=== PATIENT | male | born 1990 | race American Indian/Alaskan Native ===

== ENCOUNTER 2019-05-07 02:53 | Emergency (ER) | payer SELFPAY ==
[2019-05-07] MEDS ORDERED: NACL 0.9% 1000 ML 1,000 ML IV ONE (03:29)
[2019-05-07] MEDS ORDERED: NACL 0.9% 500 ML IR ONE (03:37)
[2019-05-07] MEDS ORDERED: XYLOCAINE 2%/EPI 1:100,000 INFILTRATI ONE ×2 (03:37→04:07)
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
[2019-05-07] MEDS ORDERED: NACL 0.9% IR ONE (04:07)
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
[2019-05-07 04:19] LABS: BUN/Creatinine Ratio 13; Blood Urea Nitrogen 10 mg/dL (9-20); Hemolysis Index 8
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
[2019-05-07 04:36] LABS: Basophils % (Auto) 0.1 % (0.0-1.8); Eosinophils % (Auto) 0.1 % (0.0-4.3); Hematocrit 36.7 % (35.5-45.6); Hemoglobin 11.9 gm/dl (11.8-15.2); Lymphocytes # (Auto) 0.8 K/mm3 (1.2-5.4); Lymphocytes % (Auto) 9.6 % (13.4-35.0); Mean Corpuscular HGB Conc 33 % (32-34); Mean Corpuscular Volume 84 fl (84-94); Monocytes # (Auto) 0.4 K/mm3 (0.0-0.8); Platelet Count 284 K/mm3 (140-440); Red Blood Count 4.38 M/mm3 (3.65-5.03); Red Cell Distribution Width 15.3 % (13.2-15.2)
[2019-05-07] MEDS ORDERED: BOOSTRIX IM ONE (05:09)
[2019-05-07] MEDS ORDERED: TRIPLE ANTIBIOTIC TP ONE (05:19)
[2019-05-07 05:35] VITALS: BP 120/76
== END 2019-05-07 05:37 | disposition home or self-care (01) ==
LOC: ED 02:53
DX: S06.0X0A Concussion without loss of consciousness, initial encounter (principal); S01.81XA Laceration without foreign body of other part of head, initial encounter; Z79.899 Other long term (current) drug therapy; X93.XXXA Assault by handgun discharge, initial encounter; Y93.89 Activity, other specified; Y92.488 Other paved roadways as the place of occurrence of the external cause; Y99.8 Other external cause status
CPT/HCPCS: 12014; 36415; 70450; 70486; 80048; 85025; 90471; 90715; 99284; J7030; 80320; 96360; A6250; G0480

== ENCOUNTER 2019-09-10 18:35 | Emergency (ER) | payer SELFPAY ==
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
[2019-09-10 23:30] VITALS: BP 124/65
[2019-09-10 23:42] LABS: Hemoglobin 11.8 gm/dl (11.8-15.2); Mean Corpuscular HGB Conc 34 % (32-34); Mean Corpuscular Volume 84 fl (84-94); Platelet Count 282 K/mm3 (140-440); Red Blood Count 4.17 M/mm3 (3.65-5.03); Red Cell Distribution Width 14.3 % (13.2-15.2)
[2019-09-11 00:23] LABS: Alanine Aminotransferase 9 units/L (7-56); Albumin 3.8 g/dL (3.9-5); BUN/Creatinine Ratio 13; Blood Urea Nitrogen 10 mg/dL (9-20); Calcium 8.6 mg/dL (8.4-10.2); Hemolysis Index 3
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
[2019-09-11 02:25] LABS: Anisocytosis 1+; Eosinophils % (Manual) 0 % (0.0-4.3); Total Cells Counted 100
[2019-09-11 02:26] LABS: Platelet Estimate Consistent w Auto
== END 2019-09-11 03:01 | disposition home or self-care (01) ==
LOC: ED 18:35
DX: K64.8 Other hemorrhoids (principal); K92.2 Gastrointestinal hemorrhage, unspecified; Z79.899 Other long term (current) drug therapy
CPT/HCPCS: 36415; 74177; 80053; 85007; 85025; 99284; Q9967